=== PATIENT | male | born 1975 | race Two or more races ===

== ENCOUNTER 2021-06-23 09:41 | Emergency (ER) | payer OTHER ==
[~2021-06-23] VITALS: Ht 165.1 cm; Wt 77.0 kg
[2021-06-23 09:54] VITALS: BP 122/81
--- NOTE | 2021-06-23 10:03 | PHYS DOC ---
Past History Past Surgical History: No Surgical History Alcohol Use: None Adult General Chief Complaint Chief Complaint: EYE PROBLEMS HPI HPI Patient is a 46-year-old male presenting for right eye problem. Onset was 3 to 4 days ago without any known inciting event, trauma, allergen, exposure mechanism of injury. Nothing known makes better or worse. Patient reports he has poor eyesight at baseline and states it is unchanged. He has chronic eye problems and is seen on post at [facility] for this, states he has had a stye in this eye which is regularly seen. Nonetheless, reports he has had redness to the medial portion of his right eye and increased clear tearing. He attempted to call [facility] to follow-up with his videogame designer but was subsequently sent to our ER for evaluation given that it is a federal holiday. He is otherwise healthy with no known medical issues, takes no medications on a daily basis Review of Systems Review of Systems Fourteen body systems of review of systems have been reviewed. See HPI for pertinent positives and negative responses, other landin all other systems are negative, non-pertinent or non-contributory Allergies Allergies Allergies Coded Allergies Type Severity Reaction Last Updated Verified No Known Drug Allergies 06/23/21 No Physical Exam Physical Exam Constitutional: Well developed, well nourished, no acute distress, non-toxic appearance. HENT: Normocephalic, atraumatic, bilateral external ears normal, oropharynx moist, no oral exudates, nose normal. Eye exam: The patient was examined with the slit lamp. Extraocular movements are intact Pupils are equally round and reactive to light. No proptosis. Direct palpation of bilateral orbits/eyes mobile and fluctuant without rigidity Visual acuity: r 20/50 l 20/50, b/l 20/40 Eyelids/under eyelids: normal Conjunctivae and sclera: Medial portion of right eye with significant conjunctival injection with otherwise unremarkable sclera Corneas: There is fluorescein uptake in a crescent pattern along medial edge of right cornea, otherwise negative Rod sign Anterior chambers: normal without cell, flare, or hyphema Neck: Normal range of motion, no tenderness, supple, no stridor. Cardiovascular: Heart rate regular per monitor Lungs & Thorax: No respiratory distress or accessory muscle use, bilateral chest rise Abdomen: Abdomen soft, non-tender, bowel sounds present in all quadrants, no guarding or rebound, nonacute abdomen. Skin: Warm, dry, no erythema, no rash. Back: No tenderness, no CVA tenderness. Extremities: No tenderness, no cyanosis, no clubbing, ROM intact, no edema. Neurologic: Alert and oriented X 3, grossly normal motor & sensory function, no focal deficits noted. Psychologic: Affect normal, judgement normal, mood normal. Current Patient Data Vital Signs Vital Signs Date Time Temp Pulse Resp B/P (MAP) Pulse Ox O2 Delivery O2 Flow Rate FiO2 06/23/21 09:54 98.1 75 18 122/81 (95) 98 EKG EKG [] Radiology/Procedures Radiology/Procedures [] Heart Score C/O Chest Pain: No Risk Factors: Risk Factors: DM, Current or recent (<one month) smoker, HTN, HLP, family history of CAD, obesity. Risk Scores: Risk Factors: DM, Current or recent (<one month) smoker, HTN, HLP, family history of CAD, obesity. Course & Med Decision Making Course & Med Decision Making ABCs unremarkable HPI physical exam and comprehensive ER work-up nonconcerning for any emergent or surgical issues I disclosed obvious finding of conjunctivitis and joint decision was made to treat with ophthalmic antibiotic drops, patient denies any obvious trauma and does not wear antibiotics and so, polymyxin eyedrops ordered I did disclose this might be an acute presentation more concerning pathology and so, patient was advised to follow-up with his previously established videogame designer on post at [facility] within upcoming 24 to 48 hours Strict return precautions discussed at length and understood by patient prior to ER departure Anya Disclaimer Anya Disclaimer This electronic medical record was generated, in whole or in part, using a voice recognition dictation system. Departure Departure: Impression: Primary Impression: Conjunctivitis, right eye Disposition: 01 HOME / SELF CARE / HOMELESS Condition: STABLE Referrals: DERRELL JACKSON DO (PCP) Additional Instructions: Your child was seen for an eye infection (conjunctivitis), which can cause eye crustiness, discharge, redness, and swelling. At home: *Start the antibiotic eye drops/ointment prescribed *Clean your eyes with a warm washcloth as needed *Encourage frequent hand washing As disclosed, it is pertinent you contact your eye doctor first thing tomorrow morning to review need for ER follow-up and repeat evaluation within upcoming 48 hours return to your doctor or the Emergency Room if your eye worsens, you develop a fever, have increasing redness/pain/swelling around the eyes, have trouble with your vision, or if you have any other concerns. Scripts Polymyxin B Sulf/Trimethoprim (POLYMYXIN B-TMP EYE DROPS) 10 Ml Drops 2 DROP EACHEYE QID for conjunctivitis for 7 Days, #10 ML 0 Refills Prov: JESÚS HAMILTON DO 06/23/21 JESÚS HAMILTON DO Jun 23, 2021 10:03
[2021-06-23] MEDS ORDERED: TETRACAINE 0.5% OPHTH SOLUTION 4ML BOTTLE. ONE (10:09)
[2021-06-23] MEDS ORDERED: POLY10DR3 EACHEYE (10:28)
== END 2021-06-23 10:56 | disposition home or self-care (01) ==
LOC: ER 09:41
DX: H10.9 Unspecified conjunctivitis (principal)
CPT/HCPCS: 99283